=== PATIENT | male | born 1995 | race Caucasian/White ===

== ENCOUNTER 2021-05-14 20:34 | Emergency (ER) | payer BC, SELFPAY ==
[2021-05-14 21:54] VITALS: BP 116/69; PULSE 68; RESP 16; TEMP 37; O2SAT 99; BMI 18.0
[2021-05-14 22:01] VITALS: BP 116/69; PULSE 68; RESP 16; TEMP 37
--- NOTE | 2021-05-14 22:07 | HMH.EDUTC ---
[facility] [place] Impression: Viral syndrome, Exposure to COVID-19 virus Disposition: Home, Self-Care Condition on Discharge: Good Instructions: DI for Viral Syndrome, DI for COVID-19 (Suspected or Confirmed ), Preventing the Spread of Coronavirus Discharge Instructions Additional Instructions: Drink plenty of fluids. Take tylenol or ibuprofen for pain or fever. Take the medications as directed. Follow up with your regular doctor. GO TO THE ER FOR ANY WORSENING SYMPTOMS Quarantine until you know the results of your covid-19 test. If it is positive, the health department should call you and give you further instructions about your length of Quarantine and other things. Notify your school or workplace of your results and follow their instructions regarding return to work/school. The cough medication (promethazine dm) will make you drowsy, so don't drive or operate heavy machinery after taking it. Prescriptions: Promethazine/Dextromethorphan [Promethazine-Dm Syrup] 5 ml PO Q6HP PRN #240 ml PRN Reason: Cough Transmission Status: Pending to [facility] Ondansetron [Zofran 4mg ODT] 4 mg PO Q8HP PRN #20 tab PRN Reason: Nausea Transmission Status: Pending to [facility] Referrals: Provider,Referral, [Primary Care Provider] - Forms: Work/School Release Time of Disposition: 22:39 Medical Decision Making - Medical Records Medical records reviewed: No: I reviewed the patient's medical records. - Abhinav Inquiry Pt receiving controlled substance: No Vital Signs: 05/14/21 21:54 05/14/21 22:01 Temperature 98.6 F 98.6 F Temperature Source Oral Pulse Rate 68 Pulse Rate [Left] 68 Respiratory Rate 16 16 Blood Pressure 116/69 Blood Pressure [Right Arm] 116/69 Blood Pressure Mean [Right Arm] 84 02 Sat by Pulse Oximetry 99 - Lab Data Lab results reviewed: Yes: I reviewed the patient's lab results. Orders (Tests/Meds): ORDERS Category Date Time Status Covid-19 Nasal PCR ([facility]) Routine Lab 05/14/21 21:40 Received Rapid Strep Scrn Group A [Strep Scrn Group A (Rapid)] Lab 05/14/21 21:40 [place] [facility] [place] - General Stated complaint: covid test Time Seen by Provider: 05/14/21 22:07 Mode of Arrival: Ambulatory Source of Information: Patient Limitations: No Limitations Description of Symptoms (Recalled from Triage Doc. by RN): PT C/O MOSLEY, BODY ACHES, SORE THROAT AND CHILLS. GF IS POSITIVE FOR COVID. HEENT Symptoms (Recalled from RN notes): Yes Resp Symptoms (Recalled from RN notes): No Skin Symptoms (Recalled from RN notes): No MS Symptoms (Recalled from RN notes): No Functional Status (Recalled from RN notes): WNL - History of Present Illness Provider Complaint: He states that for the past 3 days he has felt bad. He started to run a fever last night. Today, he has felt progressively worse. He denies significant shortness of breath or congestion. His girlfriend has covid-19 at this time. - Related Data Previous Rx's Medication Instructions Recorded Ondansetron [Zofran 4mg ODT] 4 mg PO Q8HP PRN #20 tab 05/14/21 Promethazine/Dextromethorphan 5 ml PO Q6HP PRN #240 ml 05/14/21 [Promethazine-Dm Syrup] Allergies Allergy/AdvReac Type Severity Reaction Status Date / Time No Known Allergies Allergy Verified 05/14/21 22:29 - Worker's Comp Is this a Worker's Comp case?: No [facility] History - Hepatitis A Screen Drug use history?: No High risk sexual behaviors?: No History of sexually transmitted infection?: No Currently employed?: No Childcare worker?: No Do you have indoor plumbing?: Yes Do you have electricity?: Yes Attestation statement:: This patient has been screened for Hepatitis A risk factors. I have reviewed the patient's past medical history: Yes ROS Obtained: Yes All systems reviewed & no additional complaints - Constitutional Constitutional: Reports as per HPI - Eyes Eyes: Denies eye discharge
[2021-05-14 22:59] LABS: Strep Scrn Group A (Rapid) Negative (Negative)
[2021-05-15 19:40] LABS: UTC Influenza A Antigen Negative (Negative); UTC Influenza B Antigen Negative (Negative)
== END 2021-05-14 22:43 | disposition home or self-care (01) ==
PROVIDERS: Emergency Provider Nurse Practitioner Family
DX: U07.1 COVID-19 (principal); B34.9 Viral infection, unspecified
CPT/HCPCS: 87430; 87804; 99203; C9803; G0463; U0003; U0005